=== PATIENT | male | born 1985 | race Two or more races ===

== ENCOUNTER 2017-09-23 20:21 | Emergency (ER) | payer SELFPAY ==
[~2017-09-23] VITALS: Ht 185.4 cm; Wt 90.7 kg
--- NOTE | 2017-09-23 22:34 | Emergency Room Report ---
History of Present Illness General Chief Complaint: Alcohol Intoxication Source: EMS (KEYSHAWN CARRANZA M.D.) Present Illness HPI 32-year-old male presents ED for evaluation. Patient brought in by EMS. Found intoxicated on the street. Upon arrival patient is lethargic. No signs of distress. Unclear whether patient sustained head trauma. Unable to provide any additional history at this time. No aggravating or relieving factors. Denies any other associated symptoms (KEYSHAWN CARRANZA M.D.) Allergies: Coded Allergies: UNABLE TO ASSESS (Unverified , 09/23/17) Patient History Past Medical History: none Past Surgical History: none Pertinent Family History: none Social History: Reports: alcohol use, Denies: smoking, drug use Immunizations: UTD Reviewed Nursing Documentation: PMH: Agreed, PSxH: Agreed (KEYSHAWN CARRANZA M.D.) Review of Systems All Other Systems: negative except mentioned in HPI (KEYSHAWN CARRANZA M.D.) Physical Exam Vital Signs Date Time Temp Pulse Resp B/P (MAP) Pulse Ox O2 Delivery O2 Flow Rate FiO2 09/23/17 20:24 98.7 94 16 120/64 99 Room Air 98.8 Sp02 EP Interpretation: reviewed, normal General Appearance: lethargic Head: normocephalic Eyes: bilateral eye normal inspection, bilateral eye PERRL ENT: normal ENT inspection Neck: normal inspection Respiratory: chest non-tender, lungs clear, normal breath sounds, speaking full sentences Cardiovascular #1: regular rate, rhythm, no edema Gastrointestinal: normal bowel sounds, non tender, soft, non-distended, no guarding, no rebound Rectal: deferred Genitourinary: no CVA tenderness Musculoskeletal: normal inspection Neurologic: other - intoxicated Psychiatric: other - intoxicated Skin: normal inspection Lymphatic: normal inspection (KEYSHAWN CARRANZA M.D.) Medical Decision Making Diagnostic Impression: Primary Impression: Acute alcoholic intoxication Qualified Codes: F10.929 - Alcohol use, unspecified with intoxication, unspecified ER Course Patient signout to me. He was brought in for alcohol intoxication. CT head was negative. He slept through the night male able to walk around without difficulty. Able to give his name. We'll discharge home. (BHAVYA JOY M.D.) CT/MRI/US Diagnostic Results CT/MRI/US Diagnostic Results : Imaging Test Ordered: CT Head Impression no acute process (KEYSHAWN CARRANZA M.D.) Last Vital Signs Date Time Temp Pulse Resp B/P (MAP) Pulse Ox O2 Delivery O2 Flow Rate FiO2 09/23/17 20:24 98.7 94 16 120/64 99 Room Air 98.8 Status: improved (KEYSHAWN CARRANZA M.D.) Status: improved (BHAVYA JOY M.D.) Disposition: HOME, SELF-CARE Condition: Stable Referrals: NOT CHOSEN IPA/,REFERRING (PCP) Patient Instructions: Alcohol Intoxication, [id number] Additional Instructions: Stop using alcohol or drugs. Follow-up with in 7 days. Return if worse. KEYSHAWN CARRANZA M.D. Sep 23, 2017 22:34 BHAVYA JOY M.D. Sep 24, 2017 02:39
[2017-09-24 01:30] VITALS: BP 118/62
[2017-09-24 03:00] VITALS: BP 118/62
--- NOTE | 2017-09-24 09:11 | Diagnostic Imaging Report ---
Indication: Altered mental status Technique: Continuous helical CT scanning of the head was performed without intravenous contrast material. Axial and coronal 5 mm sections were generated. Radiation dose was minimized using automated exposure control Dose: Total Dose Length Product - DLP 2378.[address] Dose Index - CTDIvol(s) 70.38,70.38 mGy. Comparison: none Findings: The ventricular system is normal in size and configuration. There is no shift of midline structures. No abnormal extra-axial fluid collections are noted. There is no evidence of intracerebral bleeding. No other abnormal high or low density areas are noted within the brain. There is bilateral ethmoid sinus opacification Impression: Normal CT scan of the head without contrast material. Incidental finding of ethmoid sinus disease This agrees with the preliminary interpretation provided overnight by [facility]. The CT scanner at [facility] is accredited by the [employer] and the scans are performed using protocols designed to limit radiation exposure to as low as reasonably achievable to attain images of sufficient resolution adequate for diagnostic evaluation.
== END 2017-09-24 03:00 | disposition home or self-care (01) ==
LOC: EDBD 20:21 → EMR 21:00
DX: F10.129 Alcohol abuse with intoxication, unspecified (principal); R41.82 Altered mental status, unspecified
CPT/HCPCS: 70450; 96374; 99284